=== PATIENT | female | born 1955 | race Caucasian/White ===

== ENCOUNTER 2018-09-24 15:48 | Inpatient (IN) | payer SELFPAY ==
[~2018-09-24] VITALS: Ht 171.4 cm; Wt 52.2 kg
[2018-09-24 15:50] VITALS: BP 154/76
--- NOTE | 2018-09-24 17:04 | Emergency Room Report ---
History of Present Illness General Chief Complaint: Generalized Weakness Source: Patient, Medical Record Present Illness HPI Patient is a 62-year-old female who presented after increased generalized weakness and chest pain. Patient was brought in by the [facility] ambulance for complaint of bilateral upper extremity weakness. Patient prior history of neurodegenerative disorder which is unclear of diagnosis.The patient is the noted to have primary care physician Dr. Rios. Patient denies any fever. She reports having no recent chest discomfort.The patient states she's been ambulatory.The patient was having the prior episode where she had lower extremity weakness however this has improved.The patient's chart she has prior diagnosis of ALS Allergies: Coded Allergies: No Known Allergies (Unverified , 09/24/18) Patient History Past Medical History: see triage record Reviewed Nursing Documentation: PMH: Agreed; PSxH: Agreed Nursing Documentation-PMH Past Medical History: No History, Except For History Of Psychiatric Problem: Yes - Anxiety, major depression Hx Neurological Problems: Yes - Muscle wasting and atrophy, muscle weakness, Flail joint Review of Systems All Other Systems: negative except mentioned in HPI Physical Exam Vital Signs Date Time Temp Pulse Resp B/P (MAP) Pulse Ox O2 Delivery O2 Flow Rate FiO2 09/24/18 15:42 98.8 64 16 126/72 98 09/24/18 15:50 Room Air Sp02 EP Interpretation: reviewed, normal General Appearance: normal inspection, well appearing, no apparent distress, alert, GCS 15 Head: atraumatic ENT: normal ENT inspection, hearing grossly normal, normal voice Neck: normal inspection, full range of motion, supple, no bony tend Respiratory: normal inspection, lungs clear, normal breath sounds, no respiratory distress, no retraction, no wheezing Cardiovascular #1: regular rate, rhythm, no edema Gastrointestinal: normal inspection, normal bowel sounds, non tender, soft, no guarding, no hernia Genitourinary: no CVA tenderness Musculoskeletal: back normal, normal range of motion, other - shoulder girdle atrophy and bilateral upper extermity Neurologic: alert, oriented x3, responsive, research chef III-XII nml as tested, speech normal, motor weakness - bilateral upper extremity flaccid, diminished reflexes Psychiatric: normal inspection, judgement/insight normal, mood/affect normal Skin: normal inspection, normal color, no rash Medical Decision Making Diagnostic Impression: Primary Impression: Upper extremity weakness Additional Impression: Episode of generalized weakness ER Course Patient presented for generalized weakness. Differential diagnosis included was not limited to anemia, urinary tract infection, electrolyte abnormality, hypothyroidism, myocardial infarction, myasthenia gravis, dehydration, among others. Because of complexity of patient's case laboratory testing and imaging studies were ordered.The patient states her doctor is Dr. Froy Goodman. The patient was noted to have some evidence of urinary infection.The Dr. Mcdowell presented was contacted for inpatient management due to primary care physician Labs Test 09/24/18 16:45 09/24/18 18:35 Urine Color Pale yellow Urine Appearance Clear Urine pH 8 (4.5-8.0) Urine Specific [place] 1.010 (1.005-1.035) Urine Protein Negative (NEGATIVE) Urine Glucose (UA) Negative (NEGATIVE) Urine Ketones Negative (NEGATIVE) Urine Blood Negative (NEGATIVE) Urine Nitrite Negative (NEGATIVE) Urine Bilirubin Negative (NEGATIVE) Urine Urobilinogen Normal MG/DL (0.0-1.0) Urine Leukocyte Esterase 2+ (NEGATIVE) Urine RBC 0-2 /HPF (0 - 2) Urine WBC 2-4 /HPF (0 - 2) Urine Squamous Epithelial Cells Few /LPF (NONE/OCC) Urine Bacteria Few /HPF (NONE) Sodium Level 137 MMOL/L (136-145) Potassium Level 4.1 MMOL/L (3.5-5.1) Chloride Level 103 MMOL/L (98-107) Carbon Dioxide Level 24 MMOL/L (21-32) Anion Gap 10 mmol/L (5-15) Blood Urea Nitrogen 14 mg/dL (7-18) Creatinine 0.7 MG/DL (0.55-1.30) Estimat Glomerular Filtration Rate > 60 mL/min (>60) Glucose Level 88 MG/DL (74-106) Calcium Level 9.5 MG/DL (8.5-10.1) Total Bilirubin 0.3 MG/DL (0.2-1.0) Aspartate Amino Transf (AST/SGOT) 22 U/L (15-37) Alanine Aminotransferase (ALT/SGPT) 22 U/L (12-78) Alkaline Phosphatase 83 U/L (46-116) Troponin I 0.000 ng/mL (0.000-0.056) Total Protein 7.2 G/DL (6.4-8.2) Albumin 3.8 G/DL (3.4-5.0) Globulin 3.4 g/dL Albumin/Globulin Ratio 1.1 (1.0-2.7) Lipase 260 U/L (73-393) Thyroid Stimulating Hormone (TSH) 2.534 uiU/mL (0.358-3.740) Last Vital Signs Date Time Temp Pulse Resp B/P (MAP) Pulse Ox O2 Delivery O2 Flow Rate FiO2 09/24/18 15:50 98.8 70 16 154/76 98 09/24/18 15:50 Room Air Status: unchanged Disposition: ADMITTED INPATIENT Condition: Serious Jarvis Brooks MD Sep 24, 2018 17:04
[2018-09-24] MEDS ORDERED: COLACE100 MG ORAL (17:24)
[2018-09-24] MEDS ORDERED: MULTIVITAMINS1 EAC2 ORAL (17:24)
[2018-09-24] MEDS ORDERED: ACETAMINOPHEN325 M1 ORAL (17:24)
[2018-09-24 17:43] VITALS: BP 133/84
--- NOTE | 2018-09-24 17:51 | Diagnostic Imaging Report ---
EXAM: XR Chest, 1 View CLINICAL HISTORY: CP TECHNIQUE: Frontal view of the chest. COMPARISON: No relevant prior studies available. FINDINGS: Lungs: Unremarkable. No consolidation. Pleural space: Unremarkable. No pneumothorax. Heart: Unremarkable. No cardiomegaly. Mediastinum: Unremarkable. Bones/joints: Unremarkable. IMPRESSION: No evidence of acute pulmonary disease
[2018-09-24 17:52] LABS: APPEARANCE,URINE CLEAR; BILIRUBIN, URINE NEGATIVE (NEGATIVE); COLOR,URINE PALE YELLOW; GLUCOSE, URINE (UA) NEGATIVE (NEGATIVE); KETONES,URINE NEGATIVE (NEGATIVE); LEUKOCYTE ESTERASE ,URINE 2+ (NEGATIVE); NITRITE,URINE NEGATIVE (NEGATIVE); PH,URINE 8 (4.5-8.0); PROTEIN,URINE NEGATIVE (NEGATIVE); UROBILINOGEN,URINE NORMAL MG/DL (0.0-1.0)
[2018-09-24 17:56] LABS: ANION GAP 10 mmol/L (5-15); BLOOD UREA NITROGEN 14 mg/dL (7-18); CALCIUM 9.5 MG/DL (8.5-10.1); CARBON DIOXIDE 24 MMOL/L (21-32); CHLORIDE 103 MMOL/L (98-107); CREATININE 0.7 MG/DL (0.55-1.30); POTASSIUM 4.1 MMOL/L (3.5-5.1); SODIUM 137 MMOL/L (136-145)
[2018-09-24 18:09] LABS: ALANINE AMINOTRANSFERASE 22 U/L (12-78); ALBUMIN 3.8 G/DL (3.4-5.0); ALBUMIN/GLOBULIN RATIO 1.1 (1.0-2.7); ALKALINE PHOSPHATASE 83 U/L (46-116); ASPARTATE AMINO TRANSFERASE 22 U/L (15-37); BILIRUBIN,TOTAL 0.3 MG/DL (0.2-1.0)
[2018-09-24 19:03] LABS: BASOPHILS % (AUTO) 1.3 % (0.0-2.0); EOSINOPHILS % (AUTO) 1.6 % (0.0-3.0); HEMATOCRIT 42.9 % (37.0-47.0); HEMOGLOBIN 14.8 G/DL (12.0-16.0); LYMPHOCYTES % (AUTO) 28.1 % (20.0-45.0); MEAN CORPUSCULAR VOLUME 92 FL (80-99); MONOCYTES % (AUTO) 8.5 % (1.0-10.0); NEUTROPHILS % (AUTO) 60.5 % (45.0-75.0); PLATELET COUNT 251 K/UL (150-450); RED BLOOD COUNT 4.67 M/UL (4.20-5.40); RED CELL DISTRIBUTION WIDTH 10.7 % (11.6-14.8); WHITE BLOOD COUNT 6.6 K/UL (4.8-10.8)
[2018-09-24] MEDS ORDERED: cefTRIAXone 1 GM in D5W 55 ML IVPB ONE (19:15)
[2018-09-24 19:30] VITALS: BP 126/84
[2018-09-25] VITALS: BP 114/82
--- NOTE | 2018-09-25 03:00 | History and Physical Report ---
DATE OF ADMISSION: 09/24/2018 HISTORY OF PRESENT ILLNESS: This is a 62-year-old female who came to the emergency room for having weakness, getting worse, unable to hold her neck, unable to swallow. Also, feeling weak on both upper extremities that is chronic, but progressively worse. PAST MEDICAL HISTORY: Significant for possible ELS, both upper extremities, weakness and dislocation of right shoulder, depression, and anxiety. ALLERGIES: NKA. MEDICATIONS: See the list. PHYSICAL EXAMINATION: GENERAL: This is an elderly white female, currently awake, pleasant. VITAL SIGNS: Blood pressure is 110/70, pulse 74, and respirations 18. SKIN: Good skin turgor. HEENT: NAD. CHEST: Bilaterally clear. CARDIOVASCULAR: Regular rhythm. No gallop. No murmur. ABDOMEN: Soft. EXTREMITIES: CCE. NEUROLOGICAL: The patient has generalized weakness on both upper extremities as well as neck. GENITOURINARY: Deferred. LABORATORY EXAMINATION: Her urine drug screen positive for leukocyte esterase and slightly burning. ASSESSMENT AND PLAN: 1. Altered mental status. 2. UTI. 3. Dehydration. 4. Upper extremity weakness. We will admit on telemetry bed. Consider restarting IV antibiotic. Continue Tylenol, multivitamin, IV hydration, PT and OT. Consider neurology consult. Her repeat CBC and chemistry panel is unremarkable. Jeremias Goodman M.D. DR: ELVIS JOB#: [id number] CC:
[2018-09-25 04:00] VITALS: BP 114/82
[2018-09-25 08:00] VITALS: BP 115/84
[2018-09-25] MEDS: cefTRIAXone 1 GM in D5W 55 ML IVPB SCH (09:42)
[2018-09-25] MEDS: Docusate 100mg cap ORAL SCH ×2 (09:43→18:47)
[2018-09-25 12:00] VITALS: BP 121/85
--- NOTE | 2018-09-25 14:59 | Cardiology Report ---
APPROVED REPORT EKG Measurement Heart [id number] Normal sinus rhythm with sinus arrhythmia Possible Left atrial enlargement Low voltage QRS Cannot rule out Anterior infarct, age undetermined Abnormal ECG
[2018-09-25 16:00] VITALS: BP 115/72
--- NOTE | 2018-09-25 19:30 | Consultation ---
History of Present Illness General Chief Complaint: Generalized Weakness Present Illness HPI 62-year-old female who came to the emergency room for having weakness, getting worse, unable to hold her neck, unable to swallow. The pt has severe anxiety and stated "diagnose please. no one has been able to diagnose me. everyone saying that I am fine." She stated that Dr. De La Cruz, is her psychiatrist and she is not taking anything "since I am perfectly fine." the pt likes to play the sick role and is anxious. the pt stated that she does not want to take any medications. I spoke to her about conversion disorder and possibility of that the pt took an offence and was very irritated. Allergies: Coded Allergies: No Known Allergies (Unverified , 09/24/18) Medication History Discontinued Medications Acetaminophen* (Acetaminophen 325MG Tablet*), 650 MG ORAL Q6H PRN for Fever/ Headache/Mild Pain, (Reported) Discontinued Reason: MD discontinued med Docusate Sodium* (Colace*), 100 MG ORAL BID, (Reported) Discontinued Reason: MD discontinued med Multivitamins* (Multivitamins*), 1 TAB ORAL DAILY, (Reported) Discontinued Reason: MD discontinued med Patient History History Provided By: Patient, Medical Record, PMD Healthcare decision maker Resuscitation status Full Code Advanced Directive on File No Past Medical/Surgical History Past Medical/Surgical History: (1) Nonspecific chest pain (2) Episode of generalized weakness (3) Upper extremity weakness (4) Chest pain (5) Infection Review of Systems Psychiatric: Reports: prior hx, anxiety, depressed feelings, emotional problems Physical Exam General Appearance: alert Neurologic: oriented x 3, responsive, depressed affect Last 24 Hour Vital Signs Date Time Temp Pulse Resp B/P (MAP) Pulse Ox O2 Delivery O2 Flow Rate FiO2 09/25/18 16:00 97.7 61 18 115/72 (86) 97 09/25/18 16:00 63 09/25/18 12:00 53 09/25/18 12:00 97.3 53 20 121/85 (97) 98 09/25/18 09:00 Room Air 09/25/18 08:00 97.0 63 20 115/84 (94) 97 09/25/18 08:00 75 09/25/18 04:00 98.2 60 22 114/82 (93) 97 09/25/18 04:00 57 09/25/18 00:00 98.2 58 23 114/82 (93) 97 09/25/18 00:00 59 09/24/18 21:26 Room Air 09/24/18 21:00 74 09/24/18 19:50 98.8 66 17 126/84 98 Room Air Intake and Output 09/24/18 09/25/18 19:00 07:00 Intake Total 637.5 ml Balance 637.5 ml IV Total 637.5 ml # Voids 2 Height (Feet): 5 Height (Inches): 7.50 Weight (Pounds): 115 Medications Current Medications Medications (Trade) Dose Ordered Sig/Jammie Route PRN Reason Start Time Stop Time Status Last Admin Dose Admin Acetaminophen (Tylenol) 650 mg Q4H PRN ORAL Mild Pain/Temp > 100.5 09/24/18 21:45 10/24/18 21:44 Ceftriaxone Sodium 1 gm/ Dextrose 55 ml @ 110 mls/hr Q24H IVPB 09/25/18 09:00 10/02/18 08:59 09/25/18 09:42 Docusate Sodium (Colace) 100 mg TWICE A DAY ORAL 09/25/18 09:00 10/25/18 08:59 09/25/18 18:47 Multivitamins (Multivitamins) 1 tab DAILY ORAL 09/25/18 09:00 10/25/18 08:59 09/25/18 09:43 Assessment/Plan Problem List: (1) Episode of generalized weakness ICD Codes: R53.1 - Weakness SNOMED: [id number] Assessment/Plan anxiety d/o depressive d/o r/o conversion d/o -no meds -provided ro/Annabella Hensley MD Sep 25, 2018 19:30
[2018-09-25 19:55] VITALS: BP 125/76
[2018-09-26] VITALS (7 sets, daily range): BP systolic 102–119; BP diastolic 61–76
--- NOTE | 2018-09-26 04:30 | Progress Note ---
DATE: 09/25/2018 SUBJECTIVE: This is a 62-year-old white female, sitting in the bed, generalized weakness, cannot hold . PHYSICAL EXAMINATION: VITAL SIGNS: Stable. CHEST: Bilaterally clear. CARDIOVASCULAR: rhythm. No gallop. No murmur. ABDOMEN: Soft. Positive bowel sounds. EXTREMITIES: Both upper extremities . NEUROLOGICAL: Generalized weakness. . ASSESSMENT: 1. Altered mental status. 2. UTI. 3. Dehydration. 4. Muscle dystrophy. PLAN: 1. We will consider neurology consult. 2. Discontinue IV fluids . 3. Continue antibiotics. 4. Start OT evaluation. 5. Discussed with charge nurse. Jeremias Goodman M.D. DR: Steve JOB#: [id number] CC:
[2018-09-26] MEDS: Docusate 100mg cap ORAL SCH ×2 (08:09→17:56)
[2018-09-26] MEDS: cefTRIAXone 1 GM in D5W 55 ML IVPB SCH (08:09)
[2018-09-27] VITALS: BP 115/73
--- NOTE | 2018-09-27 00:45 | Progress Note ---
DATE: 09/26/2018 NOTE: "VERY POOR AUDIO QUALITY" SUBJECTIVE: This is an elderly 62-year-old female currently awake, comfortable while in the bed. OBJECTIVE: VITAL SIGNS: Stable. CHEST: Bilaterally clear. CARDIOVASCULAR: Regular rhythm. No gallop. No murmur. ABDOMEN: Soft. NEUROLOGIC: Generalized weakness . ASSESSMENT: 1. Altered mental status. 2. UTI. 3. Muscle dystrophy. PLAN: We will consider Neurology consultation. Continue antibiotic evaluation. Jeremias Goodman M.D. DR: Brenda JOB#: [id number] CC:
[2018-09-27 04:44] VITALS: BP 130/81
[2018-09-27 08:00] VITALS: BP 128/76
[2018-09-27] MEDS ORDERED: cefTRIAXone 1 GM in D5W 55 ML IVPB SCH (09:00)
[2018-09-27] MEDS: Docusate 100mg cap ORAL SCH ×2 (09:30→18:15)
[2018-09-27 12:00] VITALS: BP 114/74
--- NOTE | 2018-09-27 13:08 | Infectious Diseases Prog Note ---
Assessment/Plan Assessment/Plan ID consult dictated # [id number] Subjective Allergies: Coded Allergies: No Known Allergies (Unverified , 09/24/18) Objective Vital Signs Last 24 Hour Vital Signs Date Time Temp Pulse Resp B/P (MAP) Pulse Ox O2 Delivery O2 Flow Rate FiO2 09/27/18 08:00 98.2 69 21 128/76 (93) 98 69 69 09/27/18 04:44 97.2 50 18 130/81 (97) 97 09/27/18 00:00 97.1 55 18 115/73 (87) 97 09/26/18 21:00 Room Air 09/26/18 20:24 98.2 60 18 108/70 (83) 98 09/26/18 20:00 98.2 61 20 108/70 (83) 96 60 09/26/18 16:00 97.7 61 20 112/76 (88) 96 Height (Feet): 5 Height (Inches): 7.50 Weight (Pounds): 115 Microbiology Date/Time Source Procedure Growth Status 09/24/18 17:35 Nasal Nares MRSA Culture - Final Staphylococcus Aureus - Mrsa Complete 09/25/18 17:25 Rectum VRE Culture - Final NO VANCOMYCIN RESISTANT ENTEROCOCCUS ... Complete 09/24/18 17:35 Rectum - Final NO CARBAPENEM-RESISTANT ENTEROBACTERI... Complete Current Medications Medications (Trade) Dose Ordered Sig/Jammie Route PRN Reason Start Time Stop Time Status Last Admin Dose Admin Acetaminophen (Tylenol) 650 mg Q4H PRN ORAL Mild Pain/Temp > 100.5 09/26/18 12:00 10/24/18 11:59 Ceftriaxone Sodium 1 gm/ Dextrose 55 ml @ 110 mls/hr Q24H IVPB 09/27/18 09:00 10/02/18 08:59 09/27/18 10:11 Docusate Sodium (Colace) 100 mg TWICE A DAY ORAL 09/26/18 18:00 10/25/18 08:59 09/27/18 09:30 Multivitamins (Multivitamins) 1 tab DAILY ORAL 09/27/18 09:00 10/25/18 08:59 09/27/18 09:30 Stanley Beaver MD Sep 27, 2018 13:08
[2018-09-27 16:00] VITALS: BP 126/85
[2018-09-27] MEDS ORDERED: MULTI-VITAMIN1 EACH PO (16:28)
[2018-09-27] MEDS ORDERED: A & D OINT1 APPLI1 (16:28)
[2018-09-27] MEDS ORDERED: ACETAMINOPHEN325 M1 ORAL (16:28)
[2018-09-27] MEDS ORDERED: COLACE100 MG ORAL (16:28)
--- NOTE | 2018-09-27 19:45 | Consultation ---
DATE OF CONSULTATION: 09/27/2018 INFECTIOUS DISEASE CONSULTATION CONSULTING PHYSICIAN: Stanley Beaver M.D. PRIMARY ATTENDING PHYSICIAN: Froy Goodman M.D. REASON FOR CONSULT: Urinary tract infection, MRSA colonization. HISTORY OF PRESENT ILLNESS: The patient is a 62-year-old white female admitted from a nursing facility originally because of weakness in upper extremity. The patient states that she has weakness of upper extremities for many years. She was diagnosed with muscle wasting and some kind of dystrophy, but according to the patient, all of the tests were negative and the exact cause of the problem is not clear. PAST MEDICAL HISTORY: Muscle weakness, dystrophy, and likely amyotrophic lateral sclerosis, has history of depression and anxiety also. ALLERGIES: No known drug allergies. MEDICATIONS: Ceftriaxone, multivitamin, Colace, and Tylenol. SOCIAL HISTORY: long-term resident. No history of alcohol, drug abuse, or smoking. Single. REVIEW OF SYSTEMS: Muscle weakness in upper extremities. No history of fever, chills, coughing, shortness of breath, nausea, or vomiting. PHYSICAL EXAMINATION: VITAL SIGNS: Temperature 98.2, pulse 69, and blood pressure 128/76. GENERAL APPEARANCE: No acute distress. Ambulatory at home. HEAD AND NECK: [place] conjunctivae. No oral lesion. HEART: S1 and S2 regular. LUNGS: Clear. ABDOMEN: Soft and nontender. EXTREMITIES: There is no edema. MUSCULOSKELETAL: Severe atrophy in upper extremity bilaterally that including hand muscles and deltoid muscles, lesser weakness in lower extremity. Some erythema over knees, shoulder, and upper extremity. Extremities are cold to touch. Sensation is normal. LABORATORY AND DIAGNOSTIC DATA: UA showed leukocyte esterase 2+. WBC 6.6, hemoglobin 14.8, hematocrit 45.9, and platelets 251,000. Sodium 137, potassium 4.1, chloride 103, bicarbonate 24, BUN 14, creatinine 0.7, and glucose is 88. MRSA screen was positive. VRE and carbapenem resistant enterococci screening was negative. IMPRESSION: Positive urine for leukocyte esterase, but there are no symptoms related to urinary infection. The patient has methicillin-resistant Staphylococcus aureus colonization, has muscular atrophy and wasting more in upper extremities secondary to unknown muscular disease. RECOMMENDATIONS: discontinue Rocephin. Keep the patient in MRSA colonization. We will try to obtain more information from [facility] neurologist, Dr. Caroline Huerta. At the end of my exam, I thank Dr. Goodman for involving me in the care of this patient. Stanley Beaver M.D. DR: MARYURI JOB#: [id number] CC: NOEMI
--- NOTE | 2018-09-28 02:30 | Discharge Summary ---
DATE OF ADMISSION: 09/24/2018 DATE OF DISCHARGE: 09/27/2018 SUBJECTIVE: This is a young 62-year-old female. Currently awake, comfortable, and doing fine. OBJECTIVE: VITAL SIGNS: Blood pressure is 114/74 and pulse 57. No fever. CHEST: Bilaterally clear. CARDIOVASCULAR: Regular rhythm. No gallop. No murmur. ABDOMEN: Soft. EXTREMITIES: CCE. ASSESSMENT: 1. Urinary tract infection. 2. Dehydration. 3. Muscle dystrophy. PLAN: 1. Discharge plan to custodial. 2. Continue current treatment. Jeremias Goodman M.D. DR: DIANNE JOB#: [id number] CC:
== END 2018-09-27 18:51 | DRG 690 ==
LOC: EDBD 15:48 → EMR 17:52 → 2E 18:05 → EDBEDREQ 18:19 → 3E 09-26 11:30
DX: N39.0 Urinary tract infection, site not specified (principal); E86.0 Dehydration; M62.9 Disorder of muscle, unspecified; M62.81 Muscle weakness (generalized); F41.9 Anxiety disorder, unspecified; F32.9 Major depressive disorder, single episode, unspecified; Z22.322 Carrier or suspected carrier of Methicillin resistant Staphylococcus aureus; R41.82 Altered mental status, unspecified
CPT/HCPCS: 36415; 71045; 80053; 81001; 83690; 84443; 84484; 85025; 87081; 93005; 96365; 99285